=== PATIENT | male | born 1995 | race African-American/Black ===

== ENCOUNTER 2020-05-21 08:43 | Emergency (ER) | payer OTHER ==
[2020-05-21] MEDS ORDERED: HYDROcodone/Acetaminophen 5/325 mg Tablet ONE (09:55)
[2020-05-21] MEDS ORDERED: Acetaminophen 325 MG TAB ONE (09:55)
--- NOTE | 2020-05-21 11:33 | CT ---
CT BRAIN: DATE: 05/21/2020. PROVIDED CLINICAL HISTORY: Head injury. FINDINGS: The ventricular system appears normal in size and morphology. There is no evidence for intracranial hemorrhage or mass effect. The extracranial soft tissues and osseous structures demonstrate an unrem arkable CT appearance with the exception of minimal opacification of the sphenoid sinus right of midl ine. IMPRESSION: No evidence for intracranial hemorrhage or mass effect. POS: [facility]
== END 2020-05-21 10:02 | disposition home or self-care (01) ==
LOC: MADERS 08:43
DX: S06.0X9A Concussion with loss of consciousness of unspecified duration, initial encounter (principal); F17.210 Nicotine dependence, cigarettes, uncomplicated; X58.XXXA Exposure to other specified factors, initial encounter
CPT/HCPCS: 70450